=== PATIENT | male | born 1960 | race Caucasian/White ===

== ENCOUNTER 2020-08-02 15:08 | Outpatient (CLI) | payer OTHER ==
[2020-08-02] MEDS ORDERED: METO-99 PO (15:40)
[2020-08-02] MEDS ORDERED: LOSA50TA14 PO (15:40)
[2020-08-02] MEDS ORDERED: TAMS-11 PO (15:40)
[2020-08-02] MEDS ORDERED: ASPI81TA45 PO (15:55)
[2020-08-02 16:55] LABS: ALANINE AMINOTRANSFERASE 35 U/L (12-78); ALBUMIN 4.1 g/dL (3.4-5.0); ANION GAP 9 mmol/L (5-15); CALCIUM 8.8 mg/dL (8.5-10.1); CHLORIDE 109 mmol/L (98-107); CREATININE 1.11 mg/dL (0.7-1.3)
[2020-08-02 16:58] LABS: ALKALINE PHOSPHATASE 67 U/L (45-117); BILIRUBIN,TOTAL 0.8 mg/dL (0.2-1.0); TOTAL PROTEIN 7.3 g/dL (6.4-8.2)
== END 2020-08-02 23:59 | disposition home or self-care (01) ==
LOC: STAR 15:08
PROVIDERS: ATTEND Orthopaedic Surgery Hand Surgery
DX: Z01.818 Encounter for other preprocedural examination (principal); G56.01 Carpal tunnel syndrome, right upper limb; Z20.822 Contact with and (suspected) exposure to COVID-19
CPT/HCPCS: 36415; 80053; 93005; U0003; U0005

== ENCOUNTER 2020-08-08 05:27 | Day surgery (SDC) | payer OTHER ==
[~2020-08-08] VITALS: Ht 167.6 cm; Wt 105.1 kg
[~2020-08-08 05:27] MED LIST: ASPI81TA45 PO; LOSA50TA14 PO; METO-99 PO; TAMS-11 PO
[2020-08-08] MEDS ORDERED: BUPIVACAINE/PF 0.5% ONE (06:13)
[2020-08-08] MEDS ORDERED: LIDOCAINE-MPF 1%, 5ML ONE (06:13)
[2020-08-08] MEDS ORDERED: EPINEPHRINE 1 MG/ML, 1ML ONE (06:13)
[2020-08-08] MEDS ORDERED: METH-640 PO (06:22)
[2020-08-08] MEDS ORDERED: IBUP-1222 PO (06:22)
[2020-08-08] MEDS ORDERED: tylenol arthritis PO (06:22)
[2020-08-08] MEDS ORDERED: CHLORHEXIDINE 15 ML UDC ONE (06:27)
[2020-08-08 06:38] VITALS: BP 138/89
[2020-08-08] MEDS ORDERED: FENTANYL PF 100 MCG/2ML ONE (06:53)
[2020-08-08] MEDS ORDERED: ONDANSETRON 2MG/ML, 2ML ONE (06:55)
[2020-08-08] MEDS ORDERED: PROPOFOL 10 MG/ML, 50ML ONE (06:55)
[2020-08-08] MEDS ORDERED: CHLORHEXIDINE 15 ML UDC PO ONE (07:00)
[2020-08-08] MEDS ORDERED: PROMETHAZINE 25 MG/ML, 1ML IVPush PRN (07:30)
[2020-08-08] MEDS ORDERED: KETOROLAC 30 MG/1 ML IVPush PRN (07:30)
[2020-08-08] MEDS ORDERED: LABETALOL 5MG/ML, 20ML IV PRN (07:30)
[2020-08-08] MEDS ORDERED: HALOPERIDOL 5 MG/ML IV PRN (07:30)
[2020-08-08] MEDS ORDERED: DIPHENHYDRAMINE 50 MG/ML, 1ML IVPush PRN (07:30)
[2020-08-08] MEDS ORDERED: METOCLOPRAMIDE 5 MG/ML, 2ML IVPush PRN (07:30)
[2020-08-08] MEDS ORDERED: EPHEDRINE 50 MG/ML, 1ML IVPush PRN (07:30)
[2020-08-08] MEDS ORDERED: METOPROLOL 1 MG/ML, 5ML IV PRN (07:30)
[2020-08-08] MEDS ORDERED: ONDANSETRON 2MG/ML, 2ML IVPush PRN (07:30)
[2020-08-08] MEDS ORDERED: ACETAMINOPHEN 325 MG TABLET PO PRN (07:30)
[2020-08-08] MEDS ORDERED: FENTANYL PF 100 MCG/2ML IV PRN (07:30)
[2020-08-08] MEDS ORDERED: MEPERIDINE/PF 25MG/0.5ML IVPush PRN (07:30)
[2020-08-08] MEDS ORDERED: hydrALAzine 20 MG/ML, 1ML IV PRN (07:30)
[2020-08-08] MEDS ORDERED: DIAZEPAM 5 MG/ML, 2ML IVPush PRN (07:30)
[2020-08-08] MEDS ORDERED: HYDROmorphone 1 MG/ML, 1ML INJ IVPush PRN (07:30)
[2020-08-08] MEDS ORDERED: OXYcodone 5 MG/5 ML ORAL.SOL UDC PO PRN (07:30)
== END 2020-08-08 08:25 | disposition home or self-care (01) ==
LOC: OUT 05:27
PROVIDERS: ATTEND Orthopaedic Surgery Hand Surgery
DX: G56.01 Carpal tunnel syndrome, right upper limb (principal); I10 Essential (primary) hypertension; G47.30 Sleep apnea, unspecified; E66.9 Obesity, unspecified; Z79.899 Other long term (current) drug therapy; Z98.890 Other specified postprocedural states
CPT/HCPCS: 29848; J0171; J2405; J2704; J3010